=== PATIENT | female | born 1975 | race Caucasian/White ===

== ENCOUNTER 2017-03-23 09:20 | Emergency (ER) | END 2017-03-23 12:40 | disposition left against medical advice (07) ==

== ENCOUNTER 2018-03-07 19:35 | Emergency (ER) | END 2018-03-07 21:18 | disposition home or self-care (01) ==

== ENCOUNTER 2018-03-17 14:13 | Emergency (ER) | payer BC ==
[~2018-03-17] VITALS: Ht 167.6 cm; Wt 75.8 kg
[~2018-03-17 14:13] MED LIST: HYDR-3498 PO; IBUP-1544 PO
[2018-03-17 14:15] VITALS: BP 120/74; PULSE 79; RESP 18; Ht 167.6 cm; Wt 75.8 kg
--- NOTE | 2018-03-17 15:26 | ERD ---
ER Documentation Chief Complaint Chief Complaint Voice/speaking difficulty X 1 month HPI This is a 42-year-old female with a nonsignificant past medical history presents ED with complaints of hoarseness of voice for the past month. Patient states that she screamed at her kids 1 month ago and started having hoarseness of voice ever since. Patient was seen by primary care physician and treated for sinus infection and given multiple course of antibiotics but hoarseness of voice has not improved. Patient denies any fever, chills, runny nose, cough, congestion, shortness breath, trouble breathing at all other symptoms. No known drug allergies. ROS All systems reviewed and are negative except as per history of present illness. Medications Home Meds Active Scripts Ibuprofen* (Ibuprofen*) 800 Mg Tablet, 800 MG PO Q8, #30 TAB Prov:ARLETTE RANGEL DO 02/21/15 Hydrocodone Bit-Acetaminophen* ([place]*) 5-325 Mg Tab, 1 TAB PO Q6 PRN for PAIN, #20 TAB Prov:ARLETTE RANGEL DO 02/21/15 Allergies Allergies: Coded Allergies: No Known Allergy (Unverified , 03/17/18) PMhx/Soc History of Surgery: Yes (LAP BAND ) Anesthesia Reaction: No Hx Neurological Disorder: No Hx Respiratory Disorders: No Hx Cardiac Disorders: No Hx Psychiatric Problems: No Hx Miscellaneous Medical Probl: No Hx Alcohol Use: No Hx Substance Use: No Hx Tobacco Use: No Smoking Status: Never smoker FmHx Family History: No diabetes Physical Exam Vitals Vital Signs Date Temp Pulse Resp B/P (MAP) Pulse Ox O2 O2 Flow FiO2 Time Delivery Rate 03/17/18 97.6 79 18 120/74 98 14:15 (89) Physical Exam Const: No acute distress Head: Atraumatic Eyes: Normal Conjunctiva ENT: Normal External Ears, Nose and Mouth. No tonsillar adenopathy, exudate or erythema, no tonsils, no uvula deviation, Neck: Full range of motion. No meningismus. No adenopathy Resp: Clear to auscultation bilaterally with no wheezes rhonchi rales, no respiratory distress, Cardio: Regular rate and rhythm, no murmurs Ext: No cyanosis, or edema Neur: Awake and alert Psych: Normal Mood and Affect Results 24 hrs Current Medications Medications Dose Sig/Vick Start Time Status Last (Trade) Ordered Route PRN Stop Time Admin Dose Reason Admin 8 mg ONCE ONCE 03/17/18 Dexamethasone IM 15:30 03/17/18 (Decadron) 15:31 Procedures/MDM ER COURSE: The patient was given Decadron The medication was well tolerated and the patient reports improvement in symptoms. The patient was stable throughout ED course. I kept the patient and/or family informed of laboratory and diagnostic imaging results throughout the emergency room course. The patient was promptly evaluated and a treatment plan was devised based on H&P and other data. This plan was discussed with the patient who agreed and had no further questions or concerns prior to discharge. MEDICAL DECISION MAKING: This is a 42-year-old female presents ED with complaints of voice hoarseness times 1 month. This is likely viral laryngitis. Patient was given IM Decadron in the emergency department today. no evidence of respiratory distress or airway edema. Patient was advised to follow-up with an ENT specialist if voice hoarseness persists. At this time there is no ENT emergency. No evidence of retropharyngeal abscess, epiglottitis, Jese's, peritonsillar abscess, mastoiditis, serous otitis media, among others. No evidence of sepsis. Vitals are stable patient can be managed close outpatient follow-up. Advised to follow-up with primary care doctor as well as ENT specialist in the next 48 hours. Return to ED with any worsening symptoms DISPOSITION PLAN: We discussed follow up with the patient's primary care doctor within 24 to 48 hours. Patient counseled regarding my diagnostic impression and care plan. Prior to discharge all questions answered. Pt agrees with treatment plan and understands strict return precautions. Precautionary instructions provided including instructions to return to the ER if not improving or for any worsening or changing symptoms or concerns. SPECIALIST FOLLOW UP RECOMMENDED: None Patient has been advised to follow up with primary care in 1-2 days. Disclaimer: Inadvertent spelling and grammatical errors are likely due to EHR/dictation software use and do not reflect on the overall quality of patient care. Also, please note that the electronic time recorded on this note does not necessarily reflect the actual time of the patient encounter. Departure Diagnosis: Primary Impression: Laryngitis Condition: Stable Patient Instructions: Laryngitis Referrals: OBINNA PEREIRA MD, DAYAN SHETTY,MARILIA CORDON,ETHAN NEWELL,MYRNA MEJÍA MD, M.D., MICHAEL D MD NAMAZIE, ALI R MD PATEL,FAINA THOMAS,SARAN MONTEJO,[facility] YOU HAVE RECEIVED A MEDICAL SCREENING EXAM AND THE RESULTS INDICATE THAT YOU DO NOT HAVE A CONDITION THAT REQUIRES URGENT TREATMENT IN THE EMERGENCY DEPARTMENT. FURTHER EVALUATION AND TREATMENT OF YOUR CONDITION CAN WAIT UNTIL YOU ARE SEEN IN YOUR DOCTORS OFFICE WITHIN THE NEXT 1-2 DAYS. IT IS YOUR RESPONSIBILITY TO MAKE AN APPOINTMENT FOR FOLOW-UP CARE. IF YOU HAVE A PRIMARY DOCTOR --you should call your primary doctor and schedule an appointment IF YOU DO NOT HAVE A PRIMARY DOCTOR YOU CAN CALL OUR PHYSICIAN REFERRAL HOTLINE AT IF YOU CAN NOT AFFORD TO SEE A PHYSICIAN YOU CAN CHOSE FROM THE FOLLOWING C [facility] [address] [facility] [address] [facility] [address] [facility] [address] [facility] [address] [facility]. [facility] [address] Additional Instructions: Patient advised to follow-up with an ENT specialist. Patient advised to return to the ED immediately for new or worsening symptoms. Patient advised to follow up with primary care provider in the next 24-48 hours. Patient verbalized understanding and agrees with treatment plan and course of action. If patient has no primary care they may follow up with one of the [facility] clinics listed on the following page or one of the options listed below [facility] [address] [place] [address] or [facility] [address] [place] [address] or [facility] [address] [place] [address] SRINI KHAN PA-C Mar 17, 2018 15:26
[2018-03-17] MEDS ORDERED: DEXAMETHASONE 10 MG/ML 1 ML INJ IM ONE (15:30)
== END 2018-03-17 16:16 | disposition home or self-care (01) ==
LOC: FTE 14:13
DX: J04.0 Acute laryngitis (principal)
CPT/HCPCS: 96372; 99284; J1100

== ENCOUNTER 2018-09-08 21:16 | Emergency (ER) | payer SELFPAY ==
[~2018-09-08] VITALS: Ht 165.1 cm; Wt 78.2 kg
[2018-09-08 21:17] VITALS: BP 120/76; PULSE 78; RESP 18; Ht 165.1 cm; Wt 78.2 kg
== END 2018-09-09 01:13 | disposition left against medical advice (07) ==
LOC: FTE 21:16
DX: Z53.21 Procedure and treatment not carried out due to patient leaving prior to being seen by health care provider (principal)